=== PATIENT | female | born 1995 | race Caucasian/White ===

== ENCOUNTER 2022-02-28 08:39 | Emergency (ER) | payer OTHER, SELFPAY ==
--- NOTE | 2022-02-28 08:55 | ED.URI ---
HPI - URI/Sore Throat General Chief Complaint: Upper Respiratory Infection Stated Complaint: cough, congestion, sore throat Time Seen by Provider: 02/28/22 08:57 Source: patient Mode of arrival: ambulatory Limitations: no limitations History of Present Illness HPI Narrative: Jasmyne is a 26-year-old female patient presenting to the clinic today with complaints of cough, congestion, sore throat, and chills and body aches. She reports her symptoms started yesterday. She works as an [employer] nurse and has been exposed to COVID, flu, and strep MD elicited complaint: cough, sore throat, rhinorrhea and nasal congestion Related Data Allergies Allergy/AdvReac Type Severity Reaction Status Date / Time levofloxacin [From Levaquin] Allergy Unknown Verified 02/28/22 08:56 Review of Systems Review of Systems: Pertinent positives per HPI. Patient denies any fever, chills, rash, headache, visual changes, dizziness, cough, shortness of breath, chest pain, palpitations, nausea, vomiting, diarrhea, constipation, abdominal pain, or any urinary issues. PMFSH Comments At the time of my signature, I reviewed and agree with the nursing past medical, surgical, social, and family history. There is no relevant family history pertinent to the patient complaint. Exam Narrative: General: Well-developed, well nourished, in no apparent distress Head: Normocephalic, atraumatic Eyes: Pupils equally round and reactive to light bilaterally, EOM intact, sclera and conjunctive clear, no discharge, lids normal Ears: TMs intact and dull, ear canals clear, no drainage, grossly hearing normal. Nose: Nares patent, clear nasal discharge, no inflammation, no sinus tenderness. Mouth: Oral pharynx without lesions or masses, good dentition, MMM. Oropharynx red Neck: Supple, trachea midline, no enlargement of anterior or posterior cervical nodes, no thyroid masses or goiter palpable. Cardio: Regular rate and rhythm, s1 and s2 normal, no murmur appreciated. Resp: Clear to auscultation bilaterally, no rhonchi, rales, wheezing or rubs Course Course Emergency Course: Portions of this record may have been created with voice recognition software. Level of Care: Express Care Visit Vital Signs Vital signs: Vital Signs Temperature 37.1 C 02/28/22 08:56 Pulse Rate 126 H 02/28/22 08:56 Respiratory Rate 16 12/02/22 08:56 Blood Pressure 98/62 L 02/28/22 08:56 Pulse Oximetry 100 02/28/22 08:56 Temperature 37.1 C 02/28/22 08:56 Pulse Rate 126 H 02/28/22 08:56 Respiratory Rate 16 02/28/22 08:56 Blood Pressure 98/62 L 02/28/22 08:56 Pulse Oximetry 100 02/28/22 08:56 Vital signs reviewed MDM - URI/Sore Throat MDM Narrative Medical decision making narrative: At the time of visit patient is resting comfortably on the exam table. Influenza testing was performed and was positive for influenza A. Printed Prescription for Tamiflu was given to the patient. Supportive measures were discussed with the patient she voiced understanding of the discharge instructions and agrees to treatment plan. Differential Diagnosis Differential diagnosis: Likely upper respiratory infection, otitis media, sinusitis, viral infection, bronchitis, influenza, pharyngitis and other (COVID) Lab Data Labs: Influenza A Screen Positive Reference Range: Negative Influenza B Screen Negative Reference Range: Negative Discharge Plan Discharge Clinical Impression: Influenza A Patient Disposition: Home, Self-Care Condition: Stable Instructions: Antibiotic Form, Influenza (ED) Additional Instructions: Take prescription medications only as prescribed-Tamiflu May take DayQuil/NyQuil for symptoms Increase fluids and stay well hydrated Tylenol/motrin for pain/fever Flonase and OTC antihistamines as directed Taisha smith
[2022-02-28 08:56] VITALS: BP 98/62; PULSE 126; RESP 16; TEMP 37.1; O2SAT 100
== END 2022-02-28 09:22 | disposition home or self-care (01) ==
PROVIDERS: Emergency Provider Nurse Practitioner Family
DX: J10.1 Influenza due to other identified influenza virus with other respiratory manifestations (principal)
CPT/HCPCS: 87804; 99213; G0463

== ENCOUNTER 2023-10-19 01:43 | Day surgery (SDC) | payer BC, SELFPAY ==
[2023-09-18 09:23] VITALS: BMI 18.5
--- NOTE | 2023-09-18 09:30 | PC.NURSE ---
Addendum entered by Nneka Ford RN 10/13/23 14:13: No changes to health or surgical history. Instructions verbally given to patient. Arrive at 0730 on 10-19-2023 for a planned surgery time of 0930. Stop drinking liquids by 0630. No food from midnight until after surgery. Original Note: Report to the Outpatient Waiting Room, entrance under the green pavilion located off [facility], at time _1215_ on date _[id number]_. Planned Procedure Time: _1415_. Time changes happen often and if your time is changed the preop area will call you the afternoon before. - You and your visitor will be asked to self-screen and do not enter if you have any COVID symptoms. - A mask is optional within the hospital at this time. Patients may have clear liquids (water, carbonated beverages, clear teas, apple juice) until 3 hours prior to surgery with a maximum of 20 ounces. - No food from midnight until time of surgery Take the following medications with a SIP of water the morning of surgery: ___Alprazolam if needed. DO NOT STOP ANY OF YOUR OTHER PRESCRIPTION MEDICATIONS PRIOR TO SURGERY ?EXCEPT THE FOLLOWING Medications to discontinue per physician None Date to take last dose Please no make-up, nail irish, hairspray, perfume, deodorant, or body powder the day of surgery. No jewelry (including any body piercings) or valuables the day of surgery, leave them at home. Please take a shower or bath the night before, or the morning of, surgery with an antibacterial soap. Wear comfortable, loose fitting clothing. - Jewelry must be removed prior to entering the operating room. Rings and piercings that are not removed may be cut off. - The hospital will not accept responsibility for valuables. - Please leave all valuables, including medications, at home the day of surgery. If you are going home after surgery, a licensed class a regional drivers must drive you home. - NO public transportation without another adult if you receive anesthesia. - We recommend that an adult stay with you for 24 hours following discharge. - We also recommend that you do not drive, make important decision, drink alcoholic beverages, or take any drugs that were not prescribed by your health care provider for at least 24 hours after your discharge time. Follow any additional instructions given to you from your surgeon. If you or anyone in your household have experienced Covid symptoms in the past week, please notify your surgeon or the nurse liaison at the phone number below for possible testing. Telephone instructions given to _Cassandraa__and asked if any additional questions and then verbalized understanding. Patient advised to call surgeon office or pre surgery nurse liaison [phone] if any additional questions.
--- NOTE | 2023-09-21 06:54 | WPDHPUPDATE1 ---
History and Physical Update Update Date/Time: 09/21/23 06:54 History and Physical has been reviewed, including an updated exam of the patient. There are NO changes in the patient's condition. Risks, benefits, and alternatives have been discussed and questions answered. Patient agrees to proceed with left vulvar cyst removal.
--- NOTE | 2023-10-14 13:59 | PC.NURSE ---
No changes in patient health or surgical history. Updated instructions given to patient. Report to the Outpatient Waiting Room, entrance under the green pavilion located off [facility], at time __729 on date ___[phone]____. Planned Procedure Time: _30 . Time changes happen often and if your time is changed the preop area will call you the afternoon before. - You and your visitor will be asked to self-screen and do not enter if you have any COVID symptoms. - A mask is optional within the hospital at this time. Patients may have clear liquids (water, carbonated beverages, clear teas, apple juice) until 3 hours prior to surgery with a maximum of 20 ounces. (Arop R 0630) - No food from midnight until time of surgery - Take the following medications with a SIP of water the morning of surgery: __ALPRAZOLAM IF NEEDED DO NOT STOP ANY OF YOUR OTHER PRESCRIPTION MEDICATIONS PRIOR TO SURGERY ?EXCEPT THE FOLLOWING Medications to discontinue per physician none Date to take last dose Please no make-up, nail martiniquais, hairspray, perfume, deodorant, or body powder the day of surgery. No jewelry (including any body piercings) or valuables the day of surgery, leave them at home. Please take a shower or bath the night before, or the morning of, surgery with an antibacterial soap. Wear comfortable, loose fitting clothing. - Jewelry must be removed prior to entering the operating room. Rings and piercings that are not removed may be cut off. - The hospital will not accept responsibility for valuables. - Please leave all valuables, including medications, at home the day of surgery. If you are going home after surgery, a licensed roll off driver must drive you home. - NO public transportation without another adult if you receive anesthesia. - We recommend that an adult stay with you for 24 hours following discharge. - We also recommend that you do not drive, make important decision, drink alcoholic beverages, or take any drugs that were not prescribed by your health care provider for at least 24 hours after your discharge time. For Pediatric surgeries, we recommend two adults accompany the child home. Follow any additional instructions given to you from your surgeon. If you or anyone in your household have experienced Covid symptoms in the past week, please notify your surgeon or the nurse liaison at the phone number below for possible testing. Telephone instructions given to and asked if any additional questions and then verbalized understanding. Patient advised to call surgeon office or pre surgery nurse liaison [phone] if any additional questions.
--- NOTE | 2023-10-18 20:47 | PM.IMHP ---
H&P: HPI History of Present Illness Date/Time: 10/18/23 20:47 Chief Complaint: vulvar cyst Narrative: Jasmyne is a 28yo G0, who presented to clinic on 09/17/23 for a lump on her vulva. She noticed it first started about 4 weeks ago. It was very tender and she did mess with it; which made it increase in size/redness. Her PCP sent in bactrim x 7 days and she was doing warm compresses; has not changed since it healed (did drain pus when she squeezed on it) but no longer is. The cyst is on the left side groin/pubic bone--- right on the underwear line and continues to be tender because her underwear rub right on it. Review of Systems Constitutional: Constitutional: Denies chills, Denies fever(s) and Denies headache(s) Eyes: Eyes: Denies change in vision ENT: Denies dizziness and Denies headache(s) Cardiovascular: Cardiovascular: Denies chest pain and Denies dyspnea Respiratory: Respiratory: Denies cough and Denies dyspnea Gastrointestinal: Gastrointestinal: Denies abdominal pain and Denies change in stool character Genitourinary: Genitourinary: Denies abnormal menses, Reports genital lesions, Denies pelvic pain, Denies vaginal discharge, Denies vaginal odor and Denies vaginal pruritus Neurologic: Denies dizziness and Denies headache(s) Psychiatric: Psychiatric: Denies anxiety and Denies depression [facility] Past Medical History Medical History Anxiety Family History Family History Father Alcoholism in family member Depression Anxiety Mother Depression Anxiety Grandparent Heart problem Grandparent Diabetes mellitus Depression Anxiety Social History Social History Social History: Caffeine: Coffee and Tea 4-5 cups per day Smoking status: Never smoker Second hand tobacco smoke exposure: No Alcohol intake: current Drinks per week: 1 Alcohol use details: Socially Substance use: never Substance use type: does not use Do You Feel Safe in your Home?: Yes Lack of Transportation: No Lack of Food: Never True Current Housing: I Have Housing Concerned About Future Housing: No Difficulty Paying Gas/Electric Bills: No Difficulty Paying for Meds: No Currently Unemployed: No Education: Bachelor's Degree Difficulty w/ Childcare or Family Care: No Living arrangements: with family Additional living arrangements comments: Boyfriend Occupation/Education: occupation Additional occupation/education comments: RN Gender identity (if verbalized by the patient): Female Sexual Orientation (if Verbalized by the Patient): Straight or Heterosexual Spiritual care concerns: No Agree to blood products: Yes Meds Home Medications and Allergies Home Medications Medication Instructions Recorded Confirmed Type alprazolam 0.5 mg tablet 0.5 mg PO DAILY PRN Anxiety 07/08/23 09/18/23 History Allergies Allergy/AdvReac Type Severity Reaction Status Date / Time levofloxacin [From Levaquin] Allergy Mild Palpitation Verified 09/18/23 09:22 s Exam Const: General: cooperative, healthy appearing, comfortable and no acute distress Orientation/consciousness: patient oriented x3 Resp: Effort & Inspection: normal respiratory effort Cardio: Rate: regular rate GI: Inspection: normal to inspection GI Palp: No abdominal tenderness and Yes Soft to palpation : Other: deferred to OR Skin: General skin exam: normal color Neuro: General: patient oriented x3 Extrem: General: normal to inspection Psych: Appearance: grossly normal Affect: normal affect Attitude: cooperative Assessment and Plan Assessment and plan (1) Epidermoid cyst of skin of vulva: Code(s): N90.7 - Vulvar cyst Status: Acute Plan - vulvar cyst of left mons/groin measuring ~ 1 x 1.5cm, no overlying infection - recommend left vul
--- NOTE | 2023-10-19 07:15 | WPDHPUPDATE1 ---
History and Physical Update Update Date/Time: 10/19/23 07:15 History and Physical has been reviewed, including an updated exam of the patient. There are NO changes in the patient's condition. Risks, benefits, and alternatives have been discussed and questions answered. Patient agrees to proceed with left vulvar cyst removal.
[2023-10-19 11:06] VITALS: BP 128/71; PULSE 100; RESP 20; TEMP 37; O2SAT 100
--- NOTE | 2023-10-19 11:44 | WPDANESEPPF ---
Anes - Initial Pre Proc Eval Procedure: Operation Date: 10/19/23 12:15 Proposed Procedures p Excision of Vulvar Cyst - Mayelin Ochoa MD Date/Time: 10/19/23 11:44 Surgeon: Mayelin Ochoa MD Pre Op Diagnosis: vulvar lesion Patient Data Age: 28 Gender: F Height: 1.63 m Weight: 48.4 kg Last Vital Signs Temp 98.6 F 10/19/23 11:06 Pulse 100 10/19/23 11:06 Resp 20 10/19/23 11:06 BP 128/71 10/19/23 11:06 Pulse Ox 100 10/19/23 11:06 O2 Del Method Room Air 10/19/23 11:06 Allergies Allergy/AdvReac Type Severity Reaction Status Date / Time levofloxacin [From Levaquin] Allergy Mild Palpitation Verified 10/19/23 11:04 s Home Medications Medication Instructions Recorded Confirmed Type alprazolam 0.5 mg tablet 0.5 mg PO DAILY PRN Anxiety 07/08/23 09/18/23 History acetaminophen 500 mg tablet 1,000 mg PO TID #60 tabs 10/19/23 Rx ibuprofen 800 mg tablet 800 mg PO TID #30 tabs 10/19/23 Rx oxycodone 5 mg tablet 5 mg PO Q6H PRN pain #5 tabs 10/19/23 Rx Patient hx anesthesia problems: none Family hx anesthesia problems: none Results Review: All pre-operative results and documents have been reviewed as part of the pre-operative evaluation. [facility] Past Medical History Medical History Anxiety Family History Family History Father Alcoholism in family member Depression Anxiety Mother Depression Anxiety Grandparent Heart problem Grandparent Diabetes mellitus Depression Anxiety Social History Social History Social History: Caffeine: Coffee and Tea 4-5 cups per day Smoking status: Never smoker Second hand tobacco smoke exposure: No Alcohol intake: current Drinks per week: 1 Alcohol use details: Socially Substance use: never Substance use type: does not use Do You Feel Safe in your Home?: Yes Lack of Transportation: No Lack of Food: Never True Current Housing: I Have Housing Concerned About Future Housing: No Difficulty Paying Gas/Electric Bills: No Difficulty Paying for Meds: No Currently Unemployed: No Education: Bachelor's Degree Difficulty w/ Childcare or Family Care: No Living arrangements: with family Additional living arrangements comments: Boyfriend Occupation/Education: occupation Additional occupation/education comments: RN Gender identity (if verbalized by the patient): Female Sexual Orientation (if Verbalized by the Patient): Straight or Heterosexual Spiritual care concerns: No Agree to blood products: Yes Anes - Eval Final PreProcedure Day of Procedure 10/19/23 11:44 Patient weight: normal Heart: regular rate and rhythm Lungs: clear to auscultation Airway: Mallampati scale class II Neurological: alert and oriented Last oral intake: >/= 8 hours ASA classification: II Emergent: no Anesthetic plan: proceed Anesthesia type and monitoring: general GIVS and standard monitoring Results Review: All pre-operative results and documents have been reviewed as part of the pre-operative evaluation. Informed Consent: The patient's anesthetic plan and its attendant risks and benefits were discussed with the patient/family/POA. Questions were solicited and answers provided to the satisfaction of the patient/family/POA.
[2023-10-19] MEDS: LACTATED RINGERS 1,000 ML 30 ML IV CONT (11:45)
[2023-10-19] MEDS: BUPIVACAINE/EPINEPHRINE 0.5% 10 ML VIAL INFILTRATE (12:37)
--- NOTE | 2023-10-19 12:41 | W.PM.PROC2 ---
Procedure Note - Detailed Date of Procedure 10/19/23 Pre-op Diagnosis vulvar lesion Post-op Diagnosis Same Procedure Performed Left vulvar cyst excision Surgeon Mayelin Ochoa MD Anesthesia MAC and Local (6cc of 0.5% marcaine w/ epi) Findings left vulvar cyst with track towards left groin; 1.5x1.0cm. Good hemostasis at end of case. Description of Procedure Jasmyne was taken to the operating room where she was placed under sedation without complications. She was then prepped and draped in the usual sterile fashion in the dorsal lithotomy position with her legs in low Jeff stirrups. A time-out was performed and no perioperative antibiotics were indicated. The left vulvar cyst was palpated and a linear skin incision was made in the overlying tissue. The gland was identified and dissected out using tension, counter traction, and Metzenbaum scissors. The cyst was excised without issue. Small blood vessels were coagulated using Bovie cautery. The area was infiltrated with 0.5% Marcaine with epinephrine. The defect was reapproximated using 2-0 Vicryl stitch filling the space and causing good hemostasis. The skin was then reapproximated with 4-0 Monocryl in the normal fashion. Good hemostasis was noted. All instruments were removed from the surgical field. Sponge, lap, instrument, and needle counts were correct at the end of the procedure. Patient was awoken from anesthesia and taken to recovery with plans of same-day discharge home. Estimated Blood Loss 5 IV Fluids 900 Pathology Yes (left vulvar cyst) Complications None Condition Stable Disposition Same day [facility] Billing Surgery - Charge Forward: Surgery Billing
[2023-10-19 12:43] VITALS: BP 103/44; PULSE 57; RESP 16; O2SAT 100
[2023-10-19 13:10] VITALS: BP 110/59; PULSE 67
[2023-10-19 13:40] VITALS: BP 110/59; PULSE 67
== END 2023-10-19 13:53 | disposition home or self-care (01) ==
PROVIDERS: PCP Clinical Nurse Specialist; Visit Provider Obstetrics & Gynecology
PROC: (CPT 11422; principal; 2023-10-19 12:15)
DX: N76.3 Subacute and chronic vulvitis (principal); F41.9 Anxiety disorder, unspecified; Z79.1 Long term (current) use of non-steroidal anti-inflammatories (NSAID); Z82.49 Family history of ischemic heart disease and other diseases of the circulatory system
CPT/HCPCS: 11422; 88304; 88305; A9270; J2250; J2704; J3010; J7120